=== PATIENT | male | born 1995 | race American Indian/Alaskan Native ===

== ENCOUNTER 2020-06-23 10:45 | Emergency (ER) | payer SELFPAY ==
--- NOTE | 2020-06-23 11:19 | Event Note ---
ED Screening Note Date of service: 06/23/20 Time: 11:18 ED Screening Note: Patient complains of left upper quadrant pain, nausea and vomiting, and diarrhea x3 days Admits to hematochezia Patient is diaphoretic holding left upper abdomen This initial assessment/diagnostic orders/clinical plan/treatment(s) is/are subject to change based on patients health status, clinical progression and re- assessment by fellow clinical providers in the ED. Further treatment and workup at subsequent clinical providers discretion. Patient/guardian urged not to elope from the ED as their condition may be serious if not clinically assessed and managed. Initial orders include: Labs CT
[2020-06-23] MEDS ORDERED: FAMOTIDINE 20 MG/2 ML INJ IV ONE (11:41)
[2020-06-23] MEDS ORDERED: MORPHINE 4 MG/1 ML INJ IV ONE ×2 (11:41→14:36)
[2020-06-23] MEDS ORDERED: ONDANSETRON 4 MG/2 ML INJ IV ONE ×2 (11:41→14:36)
[2020-06-23] MEDS ORDERED: SODIUM CHLORIDE 0.9% 1000 ML 1,000 ML IV ONE ×2 (11:41→14:09)
--- NOTE | 2020-06-23 11:51 | Emergency Department Report ---
ED Abdominal Pain HPI - General Chief Complaint: Abdominal Pain Stated Complaint: ABD PAIN Time Seen by Provider: 06/23/20 11:17 Source: patient Mode of arrival: Ambulatory Limitations: No Limitations - History of Present Illness Initial Comments: 24-year-old male with no past medical or surgical history presents to the hospital complaining of left sided abdominal pain for the past 2 days. Pain described as sharp and aching and intermittent but more constant today. Pain is worse with palpation and currently rated 10/10 intensity. No alleviating f actors reported. Patient developed nausea, with mild vomiting today. Patient denies vomiting blood. positive diarrhea with hematochezia and reports black stool. He denies fever, dysuria, pain radiation, hematuria, recent travel, sick contacts, alcohol abuse, NSAID, or aspirin use. Severity scale (0 -10): 10 - Related Data Previous Rx's Medication Instructions Recorded Last Taken Type Ciprofloxacin HCl 500 mg PO BID #14 tablet 06/23/20 Unknown Rx HYDROcodone/APAP 5-325 [George 1 each PO Q6HR PRN #20 tablet 06/23/20 Unknown Rx 5/325] Promethazine [Phenergan] 25 mg PO Q6HR PRN #20 tab 06/23/20 Unknown Rx metroNIDAZOLE [Flagyl] 500 mg PO Q8HR #21 tablet 06/23/20 Unknown Rx Allergies Allergy/AdvReac Type Severity Reaction Status Date / Time No Known Allergies Allergy Verified 06/23/20 12:23 ED Review of Systems ROS: Stated complaint: ABD PAIN Other details as noted in HPI Comment: All other systems reviewed and negative ED Past Medical Hx - Past Medical History Previous Medical History?: No - Surgical History Past Surgical History?: No - Social History Smoking Status: Never Smoker Substance Use Type: None - Medications Home Medications: Home Medications Medication Instructions Recorded Confirmed Last Taken Type Ciprofloxacin HCl 500 mg PO BID #14 tablet 06/23/20 Unknown Rx HYDROcodone/APAP 5-325 [George 1 each PO Q6HR PRN #20 tablet 06/23/20 Unknown Rx 5/325] Promethazine [Phenergan] 25 mg PO Q6HR PRN #20 tab 06/23/20 Unknown Rx metroNIDAZOLE [Flagyl] 500 mg PO Q8HR #21 tablet 06/23/20 Unknown Rx ED Physical Exam - General Limitations: No Limitations - Other Other exam information: General: No acute distress Head: Atraumatic Eyes: normal appearance ENT: Moist mucous membranes Neck: Normal appearance, no midline tenderness Chest: Clear to auscultation bilaterally CV: Regular rate and rhythm Abdomen: Soft, normal bowel sounds, left upper quadrant tender nder, nondistended, no rebound or guarding Rectal: Minimal brown stool obtained without gross blood guaiac Back: Normal inspection Extremity: Normal inspection, full range of motion Neuro: Alert O x 3, no facial asymmetry, speech clear, no gross motor sensory deficit Psych: Appropriate behavior Skin: No rash, no diaphoresis ED Course Vital Signs 06/23/20 06/23/20 06/23/20 11:11 11:40 11:49 Temperature 98.9 F Pulse Rate 90 102 H Respiratory 20 16 18 Rate Blood Pressure 140/92 Blood Pressure 149/92 [Left] O2 Sat by Pulse 100 100 Oximetry 06/23/20 06/23/20 13:03 14:17 Temperature Pulse Rate 82 82 Respiratory 18 16 Rate Blood Pressure Blood Pressure 130/71 132/83 [Left] O2 Sat by Pulse 99 98 Oximetry - Reevaluation(s) Reevaluation #1: 06/23/20 17:05 Patient looks much better and states he feels much better. He was dehydrated and required 2 L of normal saline for urine output. Tolerating p.o. ED Medical Decision Making - Lab Data Result diagrams: 06/23/20 12:04 06/23/20 12:04 Lab Results 06/23/20 06/23/20 06/23/20 Range/Units 12:04 12:04 12:04 WBC 12.9 H (4.5-11.0) K/mm3 RBC 5.77 H (3.65-5.03) M/mm3 Hgb 17.4 H (11.8-15.2) gm/dl Hct 49.5 H (35.5-45.6) % MCV 86 (84-94) fl MCH 30 (28-32) pg MCHC 35 H (32-34) % RDW 13.3 (13.2-15.2) % Plt Count 260 (140-440) K/mm3 Add Manual Diff Complete Total Counted 100 Seg Neuts % (Manual) 71.0 H (40.0-70.0) % Lymphocytes % (Manual) 20.0 (13.4-35.0) % Monocytes % (Manual) 8.0 H (0.0-7.3) % Eosinophils % (Manual) 1.0 (0.0-4.3) % Nucleated RBC % Not Reportable Seg Neutrophils # Man 9.2 H (1.8-7.7) K/mm3 Band Neutrophils # 0.0 K/mm3 Lymphocytes # (Manual) 2.6 (1.2-5.4) K/mm3 Abs React Lymphs (Man) 0.0 K/mm3 Monocytes # (Manual) 1.0 H (0.0-0.8) K/mm3 Eosinophils # (Manual) 0.1 (0.0-0.4) K/mm3 Basophils # (Manual) 0.0 (0.0-0.1) K/mm3 Metamyelocytes # 0.0 K/mm3 Myelocytes # 0.0 K/mm3 Promyelocytes # 0.0 K/mm3 Blast Cells # 0.0 K/mm3 WBC Morphology Not Reportable Hypersegmented Neuts Not Reportable Hyposegmented Neuts Not Reportable Hypogranular Neuts Not Reportable Smudge Cells Not Reportable Toxic Granulation Not Reportable Toxic Vacuolation Not Reportable Dohle Bodies Not Reportable Pelger-Huet Anomaly Not Reportable Lloyd Rods Not Reportable Platelet Estimate Consistent w auto Clumped Platelets Not Reportable Plt Clumps, EDTA Not Reportable Large Platelets Not Reportable Giant Platelets Not Reportable Platelet Satelliting Not Reportable Plt Morphology Comment Not Reportable RBC Morphology Normal Dimorphic RBCs Not Reportable Polychromasia Not Reportable Hypochromasia Not Reportable Poikilocytosis Not Reportable Anisocytosis Not Reportable Microcytosis Not Reportable Macrocytosis Not Reportable Spherocytes Not Reportable Pappenheimer Bodies Not Reportable Sickle Cells Not Reportable Target Cells Not Reportable Tear Drop Cells Not Reportable Ovalocytes Not Reportable Helmet Cells Not Reportable Ravi-Rudolph Bodies Not Reportable [place] Rings Not Reportable [place] Cells Not Reportable Bite Cells Not Reportable Crenated Cell Not Reportable Elliptocytes Not Reportable Acanthocytes (Spur) Not Reportable Rouleaux Not Reportable Hemoglobin C Crystals Not Reportable Schistocytes Not Reportable Malaria parasites Not Reportable Nash Bodies Not Reportable Hem Pathologist Commnt No Sodium 138 (137-145) mmol/L Potassium 3.4 L (3.6-5.0) mmol/L Chloride 100.5 (98-107) mmol/L Carbon Dioxide 23 (22-30) mmol/L Anion Gap 18 mmol/L BUN 6 L (9-20) mg/dL Creatinine 1.0 (0.8-1.3) mg/dL Estimated GFR > 60 ml/min BUN/Creatinine Ratio 6 % Glucose 125 H (75-100) mg/dL Calcium 9.8 (8.4-10.2) mg/dL Total Bilirubin 0.30 (0.1-1.2) mg/dL AST 14 (5-40) units/L ALT 16 (7-56) units/L Alkaline Phosphatase 68 (35-129) units/L Total Protein 9.0 H (6.3-8.2) g/dL Albumin 4.6 (3.9-5) g/dL Albumin/Globulin Ratio 1.0 % Lipase 14 (13-60) units/L Urine Color (Yellow) Urine Turbidity (Clear) Urine pH (5.0-7.0) Ur Specific [place] (1.003-1.030) Urine Protein (Negative) mg/dL Urine Glucose (UA) (Negative) mg/dL Urine Ketones (Negative) mg/dL Urine Blood (Negative) Urine Nitrite (Negative) Urine Bilirubin (Negative) Urine Urobilinogen (<2.0) mg/dL Ur Leukocyte Esterase (Negative) Urine WBC (Auto) (0.0-6.0) /HPF Urine RBC (Auto) (0.0-6.0) /HPF U Epithel Cells (Auto) (0-13.0) /HPF Hyaline Casts /LPF Urine Mucus /HPF Blood Type O POSITIVE Antibody Screen Negative 06/23/20 Range/Units 15:40 WBC (4.5-11.0) K/mm3 RBC (3.65-5.03) M/mm3 Hgb (11.8-15.2) gm/dl Hct (35.5-45.6) % MCV (84-94) fl MCH (28-32) pg MCHC (32-34) % RDW (13.2-15.2) % Plt Count (140-440) K/mm3 Add Manual Diff Total Counted Seg Neuts % (Manual) (40.0-70.0) % Lymphocytes % (Manual) (13.4-35.0) % Monocytes % (Manual) (0.0-7.3) % Eosinophils % (Manual) (0.0-4.3) % Nucleated RBC % Seg Neutrophils # Man (1.8-7.7) K/mm3 Band Neutrophils # K/mm3 Lymphocytes # (Manual) (1.2-5.4) K/mm3 Abs React Lymphs (Man) K/mm3 Monocytes # (Manual) (0.0-0.8) K/mm3 Eosinophils # (Manual) (0.0-0.4) K/mm3 Basophils # (Manual) (0.0-0.1) K/mm3 Metamyelocytes # K/mm3 Myelocytes # K/mm3 Promyelocytes # K/mm3 Blast Cells # K/mm3 WBC Morphology Hypersegmented Neuts Hyposegmented Neuts Hypogranular Neuts Smudge Cells Toxic Granulation Toxic Vacuolation Dohle Bodies Pelger-Huet Anomaly Lloyd Rods Platelet Estimate Clumped Platelets Plt Clumps, EDTA Large Platelets Giant Platelets Platelet Satelliting Plt Morphology Comment RBC Morphology Dimorphic RBCs Polychromasia Hypochromasia Poikilocytosis Anisocytosis Microcytosis Macrocytosis Spherocytes Pappenheimer Bodies Sickle Cells Target Cells Tear Drop Cells Ovalocytes Helmet Cells Ravi-Rudolph Bodies [place] Rings [place] Cells Bite Cells Crenated Cell Elliptocytes Acanthocytes (Spur) Rouleaux Hemoglobin C Crystals Schistocytes Malaria parasites Nash Bodies Hem Pathologist Commnt Sodium (137-145) mmol/L Potassium (3.6-5.0) mmol/L Chloride (98-107) mmol/L Carbon Dioxide (22-30) mmol/L Anion Gap mmol/L BUN (9-20) mg/dL Creatinine (0.8-1.3) mg/dL Estimated GFR ml/min BUN/Creatinine Ratio % Glucose (75-100) mg/dL Calcium (8.4-10.2) mg/dL Total Bilirubin (0.1-1.2) mg/dL AST (5-40) units/L ALT (7-56) units/L Alkaline Phosphatase (35-129) units/L Total Protein (6.3-8.2) g/dL Albumin (3.9-5) g/dL Albumin/Globulin Ratio % Lipase (13-60) units/L Urine Color Yellow (Yellow) Urine Turbidity Clear (Clear) Urine pH 5.0 (5.0-7.0) Ur Specific [place] > 1.059 H (1.003-1.030) Urine Protein 30 mg/dl (Negative) mg/dL Urine Glucose (UA) Neg (Negative) mg/dL Urine Ketones 20 (Negative) mg/dL Urine Blood Neg (Negative) Urine Nitrite Neg (Negative) Urine Bilirubin Neg (Negative) Urine Urobilinogen < 2.0 (<2.0) mg/dL Ur Leukocyte Esterase Neg (Negative) Urine WBC (Auto) 5.0 (0.0-6.0) /HPF Urine RBC (Auto) 3.0 (0.0-6.0) /HPF U Epithel Cells (Auto) < 1.0 (0-13.0) /HPF Hyaline Casts 9 /LPF Urine Mucus 3+ /HPF Blood Type Antibody Screen - Radiology Data Radiology results: report reviewed CT abdomen pelvis IV contrast: Mural thickening of the ascending colon may represent infectious or inflammatory colitis - Medical Decision Making 24-year-old male presents with left-sided abdominal pain, nausea, vomiting, and diarrhea. CT shows right sided/ascending colon thickening with differential including infectious or inflammatory colitis. Patient does not currently have a fever. Pain is controlled with IV medications. Patient tolerated p.o. intake. Patient received Flagyl and Levaquin in the ED in addition to p.o. potassium. Patient be discharged on pain medication nausea medication, and antibiotics with outpatient PMD and GI referral. Informed to return if symptoms worsen Critical Care Time: No Critical care attestation.: If time is entered above; I have spent that time in minutes in the direct care of this critically ill patient, excluding procedure time. ED Disposition Clinical Impression: Colitis, Dehydration, Hypokalemia Disposition: DC-01 TO HOME OR SELFCARE Is pt being admited?: No Does the pt Need Aspirin: No Condition: Stable Instructions: Colitis, Dehydration, Adult, Hypokalemia Additional Instructions: Take the medication as prescribed. Follow-up with your doctor or doctor/clinic provided. Return if symptoms worsen as indicated by your discharge instructions. Prescriptions: Ciprofloxacin HCl 500 mg PO BID #14 tablet metroNIDAZOLE [Flagyl] 500 mg PO Q8HR #21 tablet HYDROcodone/APAP 5-325 [George 5/325] 1 each PO Q6HR PRN #20 tablet PRN Reason: Pain Promethazine [Phenergan] 25 mg PO Q6HR PRN #20 tab PRN Reason: Nausea Referrals: PRIMARY CARE, [Primary Care Provider] - 3-5 Days FERNIE JIMENEZ MD [Staff Physician] - 3-5 Days (primary care doctor ) LB MATIAS MD [Staff Physician] - 7-10 days (GI doctor ) [facility] [Provider Group] - 3-5 Days (primary care clinic ) Forms: Work/School Release Form(ED) Time of Disposition: 17:03
[2020-06-23 12:27] LABS: Hematocrit 49.5 % (35.5-45.6); Hemoglobin 17.4 gm/dl (11.8-15.2); Mean Corpuscular HGB Conc 35 % (32-34); Mean Corpuscular Volume 86 fl (84-94); Platelet Count 260 K/mm3 (140-440); Red Blood Count 5.77 M/mm3 (3.65-5.03); Red Cell Distribution Width 13.3 % (13.2-15.2)
[2020-06-23 13:07] LABS: Alanine Aminotransferase 16 units/L (7-56); Albumin 4.6 g/dL (3.9-5); BUN/Creatinine Ratio 6; Blood Urea Nitrogen 6 mg/dL (9-20); Calcium 9.8 mg/dL (8.4-10.2); Hemolysis Index 14
--- NOTE | 2020-06-23 14:02 | Cat Scan Report ---
CT ABDOMEN AND PELVIS WITH CONTRAST INDICATION / CLINICAL INFORMATION: Abdominal pain TECHNIQUE: Axial CT images were obtained through the abdomen and pelvis after IV contrast. All CT sc ans at this location are performed using CT dose reduction for ALARA by means of automated exposure c ontrol. COMPARISON: None available. FINDINGS: LOWER CHEST: No significant abnormality LIVER: No significant abnormality GALLBLADDER/BILIARY TREE: No significant abnormality PANCREAS: No significant abnormality SPLEEN: No significant abnormality ADRENALS: No significant abnormality KIDNEYS / URETER: No significant abnormality URINARY BLADDER: No significant abnormality REPRODUCTIVE ORGANS: No significant abnormality STOMACH / SMALL BOWEL: Stomach and small bowel are normal in caliber. No evidence of bowel inflammati on. COLON: There is prominent mural thickening of the ascending colon. The appendix is normal in caliber. LYMPH NODES: No significant adenopathy. VASCULATURE: No significant abnormality. OTHER: No free air, free fluid, or focal fluid collection is identified. SKELETAL SYSTEM: No acute osseous findings. IMPRESSION: 1. Mural thickening of the ascending colon may reflect infectious or inflammatory colitis. 2. Otherwise, no acute abnormality of the abdomen or pelvis. Signer Name: Dom Dillon MD Signed: 06/23/2020 1:58 PM Workstation Name: [id number]
[2020-06-23] MEDS ORDERED: POTASSIUM CHLORIDE ER 20 MEQ TAB PO ONE (14:10)
[2020-06-23] MEDS ORDERED: levoFLOXacin 750 MG TAB PO ONE (14:29)
[2020-06-23] MEDS ORDERED: metroNIDAZOLE 500 MG TAB PO ONE (14:29)
[2020-06-23 15:09] LABS: Total Cells Counted 100
[2020-06-23 15:10] LABS: Platelet Estimate Consistent w Auto; RBC Morphology Normal
[2020-06-23 16:07] LABS: Bilirubin,Urine NEG (Negative); Blood,Urine NEG (Negative); Color,Urine Yellow (Yellow); Hyaline Casts,Urine 9 /LPF; Mucus,Urine 3+ /HPF; Urobilinogen,Urine < 2.0 mg/dL (<2.0)
[2020-06-23] MEDS ORDERED: D5W/0.9% NACL 1,000 ML IV SCH (17:00)
[2020-06-23 17:26] VITALS: BP 153/93
== END 2020-06-23 17:27 | disposition home or self-care (01) ==
LOC: ED 10:45
DX: K52.9 Noninfective gastroenteritis and colitis, unspecified (principal); E86.0 Dehydration; E87.6 Hypokalemia; Z79.899 Other long term (current) drug therapy
CPT/HCPCS: 36415; 74177; 80053; 81001; 82271; 83690; 85007; 85025; 86850; 86900; 86901; 96361; 96374; 96375; 96376; 99284; J2270; J2405; J7030; Q9967

== ENCOUNTER 2021-01-10 11:35 | Emergency (ER) | payer SELFPAY ==
[2021-01-10 11:41] VITALS: BP 161/97
--- NOTE | 2021-01-10 12:23 | Emergency Department Report ---
ED Back Pain/Injury HPI - General Chief Complaint: Back Pain/Injury Stated Complaint: BACK PAINS Time Seen by Provider: 01/10/21 11:56 Source: patient Limitations: No Limitations - History of Present Illness Initial Comments: 25-year-old male presents to the ER today with complaints of lower back/sacral pain. Patient states that the pain started 3 weeks ago. He states that the pain is in his buttocks and radiates down to his mid posterior thigh. He describes it as a aching sharp pain. He denies any particular injury, but he states that he does a lot of standing at work. He states that pain seems to be worse when he is sitting or when he is standing. He does get some mild relief when he rubs the area. He has not taken anything by mouth for the pain from [id number]. He denies any lower extremity weakness, numbness, tingling, saddle anesthesia, bowel or bladder incontinence, UTI symptoms or associated abdominal pain. He denies any prior issues with his back or any surgeries to his spine in the past. He is denies any history of illicit/IV drug use. He states he does not smoke. He states that he does not drink any alcohol. MD Complaint: back pain -: Gradual, week(s) (3) - Related Data Previous Rx's Medication Instructions Recorded Last Taken Type Ibuprofen [Motrin] 600 mg PO Q8H PRN #30 tablet 01/10/21 Unknown Rx methylPREDNISolone [Medrol 4MG 4 mg PO DAILY #1 tab.ds.pk 01/10/21 Unknown Rx DOSEPAK (21 tabs)] Allergies Allergy/AdvReac Type Severity Reaction Status Date / Time No Known Allergies Allergy Verified 06/23/20 12:23 ED Review of Systems ROS: Stated complaint: BACK PAINS Other details as noted in HPI Comment: All other systems reviewed and negative Constitutional: denies: chills, fever Eyes: denies: eye pain, eye discharge, vision change ENT: denies: ear pain, throat pain Respiratory: denies: cough, shortness of breath, SOB with exertion, SOB at rest, wheezing Cardiovascular: denies: chest pain, palpitations, dyspnea on exertion, edema, syncope, paroxysmal nocturnal dyspnea Endocrine: no symptoms reported Gastrointestinal: denies: abdominal pain, nausea, diarrhea Genitourinary: denies: urgency, dysuria Musculoskeletal: back pain, myalgia Skin: denies: rash, lesions, pruritus Neurological: denies: headache, weakness, numbness, paresthesias, confusion, abnormal gait, vertigo Psychiatric: denies: anxiety, depression, auditory hallucinations, visual hallucinations, homicidal thoughts, suicidal thoughts Hematological/Lymphatic: denies: easy bleeding, easy bruising, swollen glands ED Past Medical Hx - Past Medical History Previous Medical History?: No - Surgical History Past Surgical History?: No - Social History Smoking Status: Never Smoker Substance Use Type: None - Medications Home Medications: Home Medications Medication Instructions Recorded Confirmed Last Taken Type Ibuprofen [Motrin] 600 mg PO Q8H PRN #30 tablet 01/10/21 Unknown Rx methylPREDNISolone [Medrol 4MG 4 mg PO DAILY #1 tab.ds.pk 01/10/21 Unknown Rx DOSEPAK (21 tabs)] ED Physical Exam - General Limitations: No Limitations General appearance: alert, in no apparent distress - Head Head exam: Present: atraumatic, normocephalic, normal inspection - Eye Eye exam: Present: normal appearance, PERRL, EOMI Pupils: Present: normal accommodation - ENT ENT exam: Present: normal exam - Neck Neck exam: Present: normal inspection, full ROM - Respiratory Respiratory exam: Present: normal lung sounds bilaterally. Absent: respiratory distress, wheezes, rales, rhonchi - Cardiovascular Cardiovascular Exam: Present: regular rate, normal rhythm, normal heart sounds - GI/Abdominal GI/Abdominal exam: Present: soft. Absent: distended, tenderness, guarding, rebound - Back Exam Back exam: Present: normal inspection, full ROM, other (Patient has mild tenderness along the SI joints bilaterally. No swelling, bruising or deformity noted.). Absent: paraspinal tenderness, vertebral tenderness - Neurological Exam Neurological exam: Present: alert, oriented X3, CN II-XII intact, normal gait - Psychiatric Psychiatric exam: Present: normal affect, normal mood - Skin Skin exam: Present: intact ED Course Vital Signs 01/10/21 11:38 Temperature 98.4 F Pulse Rate 107 H Respiratory 16 Rate Blood Pressure 161/97 [Left] ED Medical Decision Making - Medical Decision Making The patient presented with acute back pain. The patient is now resting comfortably and , is alert, talkative, interactive and in no distress. The patient is neurologically intact and is ambulatory in the ED. the patient has no fever, no bowel or bladder incontinence, no saddle anesthesia and is otherwise alert and well-appearing. His history, physical examination and diagnostic testing does not suggest the presence of acute spinal epidural abscess, acute epidural bleed, cauda equina syndrome, abdominal/thoracic aortic aneurysm, aortic dissection or other acute process requiring further testing, treatment or consultation in the emergency department. The vital signs have been stable. Discussed suspected diagnosis and treatment plan with patient. The patient condition is stable and appropriate for discharge. The patient will pursue further outpatient evaluation with the primary care physician or other designated or consulting physician as indicated in the discharge instructions. Critical care attestation.: If time is entered above; I have spent that time in minutes in the direct care of this critically ill patient, excluding procedure time. ED Disposition Clinical Impression: SI (sacroiliac) pain Disposition: 01 HOME / SELF CARE / HOMELESS Is pt being admited?: No Does the pt Need Aspirin: No Condition: Stable Instructions: Sacroiliac Joint Dysfunction, Back Exercises, [id number] Additional Instructions: Recommend that you take the Medrol Dosepak and ibuprofen as prescribed. Follow- up with the medical lab specialist given to you in your discharge instructions in about 1 to 2 weeks if your symptoms persist for possible MRI. Return to the ER if your symptoms changes or worsens in any way. Prescriptions: methylPREDNISolone [Medrol 4MG DOSEPAK (21 tabs)] 4 mg PO DAILY #1 tab.ds.pk Ibuprofen [Motrin] 600 mg PO Q8H PRN #30 tablet PRN Reason: Pain Referrals: [facility] [Provider Group] - 3-5 Days [facility] [Provider Group] - 3-5 Days Forms: Work/School Release Form(ED) Time of Disposition: 12:23 Print Language: MONTENEGRIN
== END 2021-01-10 13:08 | disposition home or self-care (01) ==
LOC: ED 11:35
DX: M46.1 Sacroiliitis, not elsewhere classified (principal); Z79.899 Other long term (current) drug therapy
CPT/HCPCS: 99282